=== PATIENT | male | born 1955 | race Caucasian/White ===

== ENCOUNTER 2021-05-02 08:50 | Day surgery (SDC) | payer MEDICARE, OTHER ==
--- NOTE | 2021-04-19 13:48 | NUR ---
DOS: 05-02-21 STAIRS: HAS 4 INTO HOME, BUT ALSO HAS A RAMP THAT HE CAN USE TO GET INTO THE HOME. BUT IN THE HOME HE HAS 14 STEPS TO THE UPPER LEVEL OF THE HOME AND PLANS ON LIVING IN BOTH AREAS. TOILETS: NOT SURE IF HE WILL NEED A RISER, BUT IF HE DOES HE WILL GET ONE. SHOWER: IS A ZERO ENTERY SHOWER AND BENCH APPOINTMENTS AND PHYSICAL THERAPY: HIS AND OR FREINDS WILL GET HIM TO HIS APPOINTMENTS. HIS WORKS FROM HOME SO SHE WILL BE WITH HIM. PROVIDE PATIENT WITH A HAND OUT FROM [facility]. HE WILL GET THE ITEMS THAT HE NEEDS.
[~2021-05-02] VITALS: Ht 188 cm; Wt 92.9 kg
[~2021-05-02 08:50] MED LIST: AUGMENTIN 875-1 EACH PO; BAYER CHEWABLE81 MG PO; CRESTOR10 MG PO; HYDROCODON-ACE1 EA11 PO; NAPROXEN500 MG PO
--- NOTE | 2021-05-02 10:37 | NUR ---
PT ALERT, ORIENTED AND IS FAMILIAR TO THIS CT SCAN TECHNOLOGIST. PT HAS P.T. ARRANGED,WORK IS ALSO SEEMS TO BE TAKEN TARE OF WELL. KENNETH WILL BE HERE SOON. ALL QUESTIONS ASKED ANSWERED. PT REQUESTED PRAYER, WILL FOLLOW NEEDED
--- NOTE | 2021-05-02 14:17 | NUR ---
05/02/21 1417 Vidya Nava 1306- PT ARRIVES TO PACU. PT OPENS EYES TO STIMULI. DOES NOT RESPND OR FOLLOW COMMANDS AT THIS TIME. RESP EVEN AND UNLABORED. OXYGEN SAT HIGH 90'S TO 100% ON 6L VIA MASK. PT PLACED ON A 5 LEAD PUBLICATIONS SALES REPRESENTATIVE- IN SINUS BRADYCARDIA TO SINUS RHYTHM. DR. MONTIEL, SPINE SUPERVISOR, NURSING CAN TENDER, AND MULTIPLE STAFF MEMBERS AT THE BEDSIDE. EKG ORDERED. PT WAS IN CARDIAC ARREST IN THE OR AND CHEST COMPRESSIONS COMPLETED. 1309- RT AT THE BEDSIDE TO COMPLETE EKG. 1311- PT OPENING HIS EYES. PT IS ABLE TO ANSWER QUESTIONS NOW. SPINE SUPERVISOR AT THE BEDSIDE TALKING WITH THE PT. PT REPORTS NO CHEST PAIN OR SOB. 1313- EKG COMPLETED. DIFFICULT TO OBTAIN AT FIRST PT IS SHAKING. 1315- DR. MONTIEL AT THE BEDSIDE TO TALK WITH THE PT AND ASSESS HIM. 1319- SPINE SUPERVISOR AT THE BEDSIDE TO ASSESS THE PT AGAIN. PT CONTINUES TO REPORT NO CHEST PAIN, SOB, DIAPHORESIS, NAUSEA, DIZZINESS, OR OTHER SYMPTOMS. PT MAKING JOKES WITH STAFF ABOUT "SCARING" EVERYONE.
--- NOTE | 2021-05-02 15:30 | NUR ---
WAS NOTIFIED BY STAFF THAT PT HAD CODED DURING SURGERY AND CPR WAS IN USE. HIS KENNETH HAD BEEN CALLED, SHE ARRIVED. DR MONTIEL AND OR STAFF INFORMED HER REGARDING WHAT HAD HAPPENED. IT WAS FELT HE NEEDED TO BE TANSFERRED. KENNETH REQUESTED I CONTACT THEIR CABLE SPLICER HELPER. WHEN HE ARRIVED I ESCORTED HIM TO PACU. NIKKI NOLASCO APPROVED THE CABLE SPLICER HELPER TO COME AND BE WITH PT AND SPOUSE. THEY WERE VERY RELIEVED AT HIS ARRIVAL. PT WILL GO BY GROUND TO [facility] IN [place]. THEY HAVE FAMILY THERE, GAVE VICE PRESIDENT TALENT MANAGEMENT TO KENNETH ABOUT TRAVEL. CONNECTED WITH SUPERVISOR STONE FROM [employer] REGARDING VISITATION. HAD PRAYER WITH BOTH, ALSO GAVE LIFEFLIGHT PACK LIST TO KENNETH. WILL FOLLOW NEEDED
--- NOTE | 2021-05-02 17:54 | NUR ---
DR. MONTIEL SURGICAL DICTATION FAXED TO [facility] AT [phone].
--- NOTE | 2021-05-02 20:29 | EKG ---
[facility] [address] [facility] [place], [place] [address] Signed Sinus bradycardia Otherwise normal ECG No previous ECGs available Confirmed by ZAYRA CASTANO MD ([id number]) on 05/02/2021 8:29:08 PM Electronically Signed By: ZAYRA CASTANO MD 05/02/212028 PATIENT NAME: BEV PRADHAN Paco Electrocardiogram DATE OF : 55 PHYSICIAN: ZAYRA CASTANO MD REPORT #: [id number] REPORT IS CONFIDENTIAL AND NOT TO BE RELEASED WITHOUT AUTHORIZATION
--- NOTE | 2021-05-04 07:40 | OR ---
[facility] [address] [place] [address] Signed DATE OF OPERATION: 05/02/2021 SURGEON: Daya Viera MD PREOPERATIVE DIAGNOSIS: Degenerative joint disease, right knee, severe. POSTOPERATIVE DIAGNOSIS: Degenerative joint disease, right knee, severe. PROCEDURE PERFORMED: Right total knee arthroplasty with Yuriy. REPRODUCTIVE HEALTHCARE ASSISTANT: TANYA Romero. Komal was present and critical for portions of procedure. ANESTHESIA: Epidural. BLOOD LOSS: 165 mL. TOURNIQUET TIME: Zero. IMPLANTS: Milton Triathlon size 6 with a 9 mm insert. COMPLICATIONS: The patient did go into full arrest during the surgery with 45 seconds of asystole, followed by return of bradycardia and a good blood pressure. BRIEF HISTORY: Bev is a 65-year-old gentleman with some history of valve disease, who was cleared by Cardiology and his internists and elected to proceed with surgery. Risks, benefits, and alternatives were discussed. He understood and wished to proceed. Anesthesia was with epidural because of his valvular disease as it being easier to maintain his pressure. DESCRIPTION OF PROCEDURE: Electronically Signed By: DAYA VIERA MD 05/04/21 0740 PATIENT NAME: BEV PRADHAN OPERATIVE REPORT DATE OF : 55 REPORT #: [id number] PHYSICIAN: DAYA VIERA MD PCP: ORTIZ CLOUD DO REPORT IS CONFIDENTIAL AND NOT TO BE RELEASED WITHOUT AUTHORIZATION [facility] [address] [place], [place] [address] Signed Once consent was obtained, he was taken to the operating room. After adequate anesthesia, he was placed on the operating room table. All downside pressure points well padded. The right leg was prepped and draped in a standard sterile fashion. The knee was approached through standard anterior midline incision, carried through skin and subcutaneous tissue. Mid vastus approach was undertaken. The bleeders were cauterized as we went. The arthrotomy was carried down to the MCL and the MCL was elevated as a sleeve around the posteromedial corner. The infrapatellar fat pad was excised. The ACL was transected as were the anterior horns of the menisci. The checkpoints were placed in the medial femoral condyle and the proximal tibia. Computer rays were placed in the medial femoral condyle and percutaneously into the tibia. The leg was then registered with the computer as were the fine anatomic points of the knee. The osteophytes were removed and the knee was balanced using the computer. Once this was complete, the robot was brought in and the four straight cuts were made with care taken to protect the patellar tendon and MCL. Two angle cuts were then made and all osteophytes were removed. At this point, Anesthesia advised that his heart rate was dropping, it went down to 20. His blood pressure was about 100. He then bounced back up to 30 and close to 40 before going to zero. We did start CPR, chest compressions were performed while maintaining the sterile field on the surgery side. Once his heart rate started to rebound with 0.5 of atropine and glycopyrrolate, his blood pressure came back up. At that point since we were pretty much ready to put implants and I went ahead and just put the femoral and tibial implants in with a 9 mm poly to act as a spacer if nothing else, these were not submitted. We did not cut or resurface the knee or patella at all. We elected not to do the periarticular injections or the On-Q pain pump. His wound was washed out with 3 L normal saline and 0.5 L of Irrisept. The wound was then closed using #2 StrataFix, #0 StrataFix to the subcutaneous tissue, shoaib for the skin. The wound was dressed with Acticoat 7 dressing, ABDs, and Uli wrap. He was awakened and taken to the recovery room in stable condition. He has remained in stable condition since then. Daya Viera MD BA/VIRIL /[id number] Copies: Electronically Signed By: DAYA VIERA MD 05/04/21 0740 PATIENT NAME: BEV PRADHAN OPERATIVE REPORT DATE OF : 55 REPORT #: [id number] PHYSICIAN: DAYA VIERA MD PCP: ORTIZ CLOUD DO REPORT IS CONFIDENTIAL AND NOT TO BE RELEASED WITHOUT AUTHORIZATION [facility] [address] [place] [id number] Signed ~ Electronically Signed By: DAYA VIERA MD 05/04/21 0740 PATIENT NAME: LORNEBEV D OPERATIVE REPORT DATE OF : 55 REPORT #: [id number] PHYSICIAN: DAYA VIERA MD PCP: ORTIZ CLOUD DO REPORT IS CONFIDENTIAL AND NOT TO BE RELEASED WITHOUT AUTHORIZATION
== END 2021-05-02 16:02 | disposition short-term general hospital (02) ==
LOC: DS 08:50
PROVIDERS: ATTEND Specialist
PROC: 0SRC06Z Replacement of Right Knee Joint with Oxidized Zirconium on Polyethylene Synthetic Substitute, Open Approach (ICD-10-PCS; principal; 2021-05-02 11:15)
DX: M17.11 Unilateral primary osteoarthritis, right knee (principal)
CPT/HCPCS: 01402; 64447; 71045; 76942; 80053; 82553; 83735; 83874; 84484; 85025; 93005; 93010; C1713; C1776; J0131; J0690; J1100; J1885; J2001; J2250; J2704; J2795; J7040; J7121

== ENCOUNTER 2022-01-11 15:45 | Emergency (ER) | payer MEDICARE, OTHER ==
[~2022-01-11] VITALS: Ht 188 cm; Wt 92.5 kg
== END 2022-01-11 17:17 | disposition home or self-care (01) ==
LOC: ED 15:45
DX: S61.011A Laceration without foreign body of right thumb without damage to nail, initial encounter (principal); W27.8XXA Contact with other nonpowered hand tool, initial encounter; Z23 Encounter for immunization; Z53.21 Procedure and treatment not carried out due to patient leaving prior to being seen by health care provider
CPT/HCPCS: 73140; 90715